=== PATIENT | male | born 1980 | race Caucasian/White ===

== ENCOUNTER 2020-05-15 11:21 | Emergency (ER) | payer OTHER, SELFPAY ==
[2020-05-15 11:41] VITALS: BP 167/93; PULSE 69; RESP 16; TEMP 36.1; O2SAT 100
--- NOTE | 2020-05-15 12:02 | ED.EYEPROB ---
HPI - Eye Problem General Chief complaint: Eye Problems Stated complaint: Eye Infection Time Seen by Provider: 05/15/20 11:50 Source: patient Mode of arrival: ambulatory Limitations: no limitations History of Present Illness HPI Narrative: Kalia Sharp is a 39 yo male with a PMH of asthma who comes to [facility] with a large infected stye on the right eyelid. States this lid started swelling 3 weeks ago but acute swelling about a week ago, 2 days ago became tender. No drainage, using warm soaks and [id number] stye medication Related Data Allergies Allergy/AdvReac Type Severity Reaction Status Date / Time Penicillins Allergy Intermediate Rash Verified 05/15/20 11:42 Review of Systems Review of Systems: Narrative: CONSTITUTIONAL: Denies fever, chills, sweats. EYES: Denies visual changes, redness, discharge. Right upper lid stye that appears infected ENT: Denies rhinorrhea, congestion, sore throat, otalgia. CARDIOVASCULAR: Denies chest pain, palpitations, edema. RESPIRATORY: Denies dyspnea, wheezing, cough GASTROINTESTINAL: Denies abdominal pain, nausea, vomiting, diarrhea. GENITOURINARY: Denies dysuria, hematuria, abnormal discharge SKIN: Denies rash or itching. NEUROLOGIC: Denies numbness, or focal weakness. PSYCHIATRIC: Denies anxiety or depression. FOR[facility]LY [facility] Past Medical History Medical History Asthma Social History Social History (Updated 05/15/20 @ 12:24 by Ashley Nguyen CNP) Smoking status: Never smoker Alcohol intake: current Comments At time of signature, I agree with nursing past medical, surgical, social and family history. There is no relevant family history pertinent to the presenting complaint. Patient is aware that blood pressure is elevated he states is due to pain,anxiety; HR is within normal limits Exam Narrative: Exam Narrative: GENERAL: This is a well-nourished, well-developed patient, in mild distress. HEAD: normocephalic, atraumatic. EYES: PERRL. Sclera clear/white. Vision is grossly intact. Large infected looking lesion on right upper lid at the outer canthus EARS: External ears normal, Hearing grossly intact. NOSE: External nose normal without nasal discharge, nares without redness, no rhinorrhea. THROAT: Mucous membranes moist, NECK: Neck supple, non-tender CARDIOVASCULAR: Regular rate and rhythm without murmurs, gallops, or rubs. RESPIRATORY: Clear to auscultation. Breath sounds equal bilaterally. No wheezes, rales, or rhonchi. GASTROINTESTINAL: Abdomen soft, non-tender, SKIN: warm, intact with no suspicious lesions or rash, good texture and turgor. NEURO: awake, alert, and oriented to person, place and time. There were no obvious focal neurologic abnormalities. Steady gait EXTREMITIES: Normal range of motion. 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 - has appt June 14 Vital Signs Vital signs: Vital Signs Temperature 97 F L 05/15/20 11:41 Pulse Rate 69 05/15/20 11:41 Respiratory Rate 16 05/15/20 11:41 Blood Pressure 167/93 H 05/15/20 11:41 Pulse Oximetry 100 05/15/20 11:41 Temperature 97 F L 05/15/20 11:41 Pulse Rate 69 05/15/20 11:41 Respiratory Rate 16 05/15/20 11:41 Blood Pressure 167/93 H 05/15/20 11:41 Pulse Oximetry 100 05/15/20 11:41 Procedures Abscess I/D Right eyelid: Date of Incision: 05/15/20 Time of Incision: 12:15 Side (if applicable): right Local Anesthetic: other anesthetic Amount of anesthesia used (mL): 1 Technique: needle aspiration and probed loculations Amount of fluid expressed (mL): 2 Irrigation: Yes Packing used?: none I&D Result
[2020-05-15] MEDS: LIDOCAINE, EPINEPHRINE, TETRACAINE VISCOUS SOLN 3 ML TOPICAL (12:28)
[2020-05-15] MEDS: ONDANSETRON HCL ODT 4 MG TABLET PO (12:29)
[2020-05-15] MEDS: TETRACAINE HCL 0.5% OPHTH SOLN 4 ML BTL 1 DROP RIGHT EYE (12:30)
== END 2020-05-15 12:54 | disposition home or self-care (01) ==
PROVIDERS: Emergency Provider Nurse Practitioner
DX: H00.031 Abscess of right upper eyelid (principal); H00.011 Hordeolum externum right upper eyelid; J45.909 Unspecified asthma, uncomplicated
CPT/HCPCS: 10160; 87070; 87075; 87076; 87205; 99213; A9270; G0463